=== PATIENT | male | born 1990 | race Two or more races ===

== ENCOUNTER 2021-06-20 19:57 | Emergency (ER) | payer MEDICAID, OTHER ==
[~2021-06-20] VITALS: Ht 190.5 cm; Wt 140.6 kg
[2021-06-21 00:26] VITALS: BP 130/97
[2021-06-21] MEDS ORDERED: KETOROLAC TROMETH 60MG/2ML VIAL IM ONE (01:15)
== END 2021-06-21 02:00 | disposition home or self-care (01) ==
LOC: ER 19:57
DX: M77.31 Calcaneal spur, right foot (principal)
CPT/HCPCS: 73630; 96372; 99283; J1885

== ENCOUNTER 2021-10-04 16:35 | Emergency (ER) | payer MEDICAID ==
[~2021-10-04] VITALS: Ht 185.4 cm; Wt 158.8 kg
[2021-10-04 17:12] VITALS: BP 133/85
[2021-10-04] MEDS ORDERED: traMADol HCL 50 MG TAB PO ONE (17:30)
== END 2021-10-04 17:42 | disposition home or self-care (01) ==
LOC: ER 16:35
DX: M77.31 Calcaneal spur, right foot (principal); J45.909 Unspecified asthma, uncomplicated
CPT/HCPCS: 73630

== ENCOUNTER 2021-10-16 17:30 | Emergency (ER) | payer MEDICAID ==
[~2021-10-16] VITALS: Ht 190.5 cm; Wt 158.8 kg
[2021-10-16 17:37] VITALS: BP 126/87
[2021-10-17] MEDS ORDERED: IBUP800T27 PO (10:04)
== END 2021-10-17 02:35 | disposition left against medical advice (07) ==
LOC: ER 17:30
DX: M79.605 Pain in left leg (principal); R20.2 Paresthesia of skin; Z53.21 Procedure and treatment not carried out due to patient leaving prior to being seen by health care provider

== ENCOUNTER 2021-10-17 07:52 | Emergency (ER) | payer MEDICAID ==
[~2021-10-17] VITALS: Ht 190.5 cm; Wt 158.8 kg
[2021-10-17 08:31] VITALS: BP 147/87
[2021-10-17] MEDS ORDERED: IBUP800T27 PO (10:04)
== END 2021-10-17 10:09 | disposition home or self-care (01) ==
LOC: ER 07:52
DX: M72.2 Plantar fascial fibromatosis (principal); J45.909 Unspecified asthma, uncomplicated; Z90.49 Acquired absence of other specified parts of digestive tract
CPT/HCPCS: 73630

== ENCOUNTER 2021-11-18 12:51 | Emergency (ER) | payer MEDICAID ==
[~2021-11-18] VITALS: Ht 190.5 cm; Wt 158.8 kg
[~2021-11-18 12:51] MED LIST: IBUP800T27 PO
[2021-11-18 15:13] VITALS: BP 150/103
[2021-11-18] MEDS ORDERED: KETOROLAC TROMETH 60MG/2ML VIAL IM ONE (15:15)
[2021-11-18] MEDS ORDERED: ALPR0.25 GT (16:24)
[2021-11-18] MEDS ORDERED: VALA500T33 PO (16:24)
[2021-11-18] MEDS ORDERED: HYDR50CA PO (16:38)
== END 2021-11-18 16:39 | disposition home or self-care (01) ==
LOC: ER 12:51
DX: G51.0 Bell's palsy (principal); F41.9 Anxiety disorder, unspecified; J45.909 Unspecified asthma, uncomplicated
CPT/HCPCS: 70450; 96372; 99284; J1885

== ENCOUNTER 2022-01-04 05:22 | Emergency (ER) | payer MEDICAID ==
[~2022-01-04] VITALS: Ht 190.5 cm; Wt 158.8 kg
[~2022-01-04 05:22] MED LIST changes: +HYDR50CA PO; +VALA500T33 PO
[2022-01-04] MEDS ORDERED: KETOROLAC TROMETH 60MG/2ML VIAL IM ONE (07:00)
[2022-01-04] MEDS ORDERED: IBUP800T27 PO (07:10)
[2022-01-04] MEDS ORDERED: BACL10TA PO (07:10)
[2022-01-04 07:18] VITALS: BP 118/78
== END 2022-01-04 07:19 | disposition home or self-care (01) ==
LOC: ER 05:22
DX: S29.011A Strain of muscle and tendon of front wall of thorax, initial encounter (principal); J45.909 Unspecified asthma, uncomplicated; I10 Essential (primary) hypertension; X50.1XXA Overexertion from prolonged static or awkward postures, initial encounter; Y93.89 Activity, other specified; Y92.89 Other specified places as the place of occurrence of the external cause; Y99.8 Other external cause status
CPT/HCPCS: 71101; 96372; 99283; J1885

== ENCOUNTER 2022-06-09 12:37 | Emergency (ER) | payer MEDICAID ==
[~2022-06-09] VITALS: Ht 190.5 cm; Wt 164.5 kg
[~2022-06-09 12:37] MED LIST changes: +BACL10TA PO
[2022-06-09 14:00] VITALS: BP 132/87
[2022-06-09] MEDS ORDERED: IBUP800T27 PO (17:22)
[2022-06-09] MEDS ORDERED: CYCL-837 PO (17:22)
[2022-06-09] MEDS ORDERED: KETOROLAC TROMETH 60MG/2ML VIAL IM ONE (17:30)
== END 2022-06-09 18:25 | disposition home or self-care (01) ==
LOC: ER 12:37
DX: S20.211A Contusion of right front wall of thorax, initial encounter (principal); I10 Essential (primary) hypertension; J45.909 Unspecified asthma, uncomplicated; Z90.49 Acquired absence of other specified parts of digestive tract; Z79.1 Long term (current) use of non-steroidal anti-inflammatories (NSAID); Z79.899 Other long term (current) drug therapy; W11.XXXA Fall on and from ladder, initial encounter; Y93.89 Activity, other specified; Y92.89 Other specified places as the place of occurrence of the external cause; Y99.8 Other external cause status
CPT/HCPCS: 71101; 96372; 99283; J1885

== ENCOUNTER 2022-07-31 06:04 | Emergency (ER) | payer MEDICAID ==
[~2022-07-31] VITALS: Ht 190.5 cm; Wt 156.5 kg
[~2022-07-31 06:04] MED LIST changes: +CYCL-837 PO
[2022-07-31] MEDS ORDERED: KETOROLAC TROMETH 60MG/2ML VIAL IM ONE (07:45)
[2022-07-31] MEDS ORDERED: BACL10TA PO (08:38)
[2022-07-31] MEDS ORDERED: IBUP800T27 PO (08:38)
== END 2022-07-31 08:40 | disposition home or self-care (01) ==
LOC: ER 06:04
DX: S76.312A Strain of muscle, fascia and tendon of the posterior muscle group at thigh level, left thigh, initial encounter (principal); I10 Essential (primary) hypertension; J45.909 Unspecified asthma, uncomplicated; Z90.49 Acquired absence of other specified parts of digestive tract; Z79.1 Long term (current) use of non-steroidal anti-inflammatories (NSAID); Z79.899 Other long term (current) drug therapy; X50.1XXA Overexertion from prolonged static or awkward postures, initial encounter; Y93.89 Activity, other specified; Y92.89 Other specified places as the place of occurrence of the external cause; Y99.0 Civilian activity done for income or pay
CPT/HCPCS: 96372; 99283; J1885

== ENCOUNTER 2023-04-09 07:12 | Emergency (ER) | payer MEDICAID ==
[~2023-04-09] VITALS: Ht 190.5 cm; Wt 116.0 kg
[~2023-04-09 07:12] MED LIST changes: +IBUP-1456 PO; -IBUP800T27 PO
[2023-04-09] MEDS ORDERED: TETRACAINE HCL 0.5% OPTH(EYE) SOLN 4ML LEFTEYE ONE (07:45)
[2023-04-09 07:54] VITALS: BP 127/84
[2023-04-09] MEDS ORDERED: TOB03OS OP (08:03)
== END 2023-04-09 08:17 | disposition home or self-care (01) ==
LOC: ER 07:12
DX: S05.01XA Injury of conjunctiva and corneal abrasion without foreign body, right eye, initial encounter (principal); H11.31 Conjunctival hemorrhage, right eye; J45.909 Unspecified asthma, uncomplicated; I10 Essential (primary) hypertension; Z88.6 Allergy status to analgesic agent; Z88.8 Allergy status to other drugs, medicaments and biological substances; W22.8XXA Striking against or struck by other objects, initial encounter; Y93.89 Activity, other specified; Y92.89 Other specified places as the place of occurrence of the external cause; Y99.8 Other external cause status

== ENCOUNTER 2024-04-20 04:50 | Emergency (ER) | payer MEDICAID ==
[~2024-04-20 04:50] MED LIST changes: +TOB03OS OP
== END 2024-04-20 06:18 | disposition left against medical advice (07) ==
LOC: ER 04:50
DX: R10.9 Unspecified abdominal pain (principal); Z53.21 Procedure and treatment not carried out due to patient leaving prior to being seen by health care provider